=== PATIENT | female | born 1960 | race Caucasian/White ===

== ENCOUNTER 2020-11-13 15:52 | Emergency (ER) | payer MEDICARE ==
[~2020-11-13 15:52] MED LIST: CITALOPRAM HBR10 MG PO; FOLIC ACID1 M1 PO; LEVETIRACETAM750 MG PO; METOPROLOL SUCC50 MG PO; OMEPRAZOLE 20MG20 MG PO; PREDNISONE10 MG PO; TOPIRAMATE100 MG PO
[2020-11-13] MEDS ORDERED: CLARITIN10 MG PO (16:28)
[2020-11-13] MEDS ORDERED: PREDNISONE 20MG20 MG PO (17:27)
== END 2020-11-13 17:38 | disposition home or self-care (01) ==
LOC: FER 15:52
DX: L23.7 Allergic contact dermatitis due to plants, except food (principal); Z98.890 Other specified postprocedural states
CPT/HCPCS: 99283

== ENCOUNTER 2021-10-27 13:31 | Emergency (ER) | payer MEDICARE ==
[~2021-10-27 13:31] MED LIST changes: +CLARITIN10 MG PO; +PREDNISONE 20MG20 MG PO
[2021-10-27] MEDS ORDERED: AUGMENTIN 500-1 EACH PO (15:50)
== END 2021-10-27 15:59 | disposition home or self-care (01) ==
LOC: FER 13:31
DX: S51.851A Open bite of right forearm, initial encounter (principal); S61.452A Open bite of left hand, initial encounter; L03.113 Cellulitis of right upper limb; L03.114 Cellulitis of left upper limb; I10 Essential (primary) hypertension; W55.01XA Bitten by cat, initial encounter; Y92.830 Public park as the place of occurrence of the external cause
CPT/HCPCS: 99283